=== PATIENT | female | born 1960 | race African-American/Black ===

== ENCOUNTER 2017-03-31 07:48 | Outpatient (CLI) | payer OTHER ==
--- NOTE | 2017-03-31 09:43 | Mammography Report ---
BILATERAL MAMMOGRAM: FINDINGS: The breast tissue is heterogeneously dense, which could obscure detection of small masses (approximately 50%-75% glandular). No mass, distortion, suspicious calcification, or skin change is seen. No significant changes compared to prior exams dating back to 2015. CAD was utilized. IMPRESSION: Negative mammogram. There is no mammographic evidence of malignancy. RECOMMENDATION: Follow-up per ACS guidelines. BI-RADS CATEGORY: 1 = Negative ACR BI-RADS MAMMOGRAPHIC CODES: 0 = Needs additional imaging evaluation; 1 = Negative; 2 = Benign; 3 = Probably benign; 4 = Suspicious; 5 = Malignant; 6 = Known biopsy-proven malignancy COMMENT: 1. Dense breast tissue, i.e., adenosis, fibrocystic changes, etc., may obscure an underlying neoplasm. 2. Approximately 10% of cancers are not detected with mammography. 3. A negative mammography report should not delay biopsy if a clinically suspicious mass is present. COMMENT: Patient follow-up letters are generated in [employer].
== END 2017-03-31 07:49 | disposition home or self-care (01) ==
LOC: MAMMO 07:48
PROVIDERS: ATTEND Family Medicine
DX: Z12.31 Encounter for screening mammogram for malignant neoplasm of breast (principal)
CPT/HCPCS: 77067; G0202

== ENCOUNTER 2021-07-10 21:35 | Emergency (ER) | payer OTHER ==
[2021-07-10 21:39] VITALS: BP 143/81
[2021-07-10] MEDS ORDERED: FAMOTIDINE 20 MG TAB PO ONE (23:33)
[2021-07-10] MEDS ORDERED: predniSONE 50 MG TAB PO ONE (23:33)
[2021-07-10] MEDS ORDERED: diphenhydrAMINE 25 MG CAP PO ONE (23:33)
--- NOTE | 2021-07-10 23:38 | Emergency Department Report ---
HPI - General Chief Complaint: Allergic Reaction Time Seen by Provider: 07/10/21 23:26 - HPI HPI: 60-year-old female presents to the emergency department with concern for an allergic reaction. She began having swelling around both of her eyes about 15 or 20 minutes after drinking soy milk at around 8:30 PM this evening. She did not have any known history of soy or soy milk allergy and says that she has drank it in the past. She took a dose of loratadine around the time the eye swelling began. She denies any swelling of the tongue or throat, difficulty swallowing, shortness of breath, chest pain. ED Past Medical Hx - Past Medical History Previous Medical History?: No - Surgical History Past Surgical History?: No - Medications Home Medications: Home Medications Medication Instructions Recorded Confirmed Last Taken Type Famotidine [Pepcid] 20 mg PO BID #10 tablet 07/11/21 Unknown Rx diphenhydrAMINE [Benadryl CAP] 25 mg PO Q8HR PRN #10 capsule 07/11/21 Unknown Rx predniSONE [Deltasone] 20 mg PO QDAY #4 tab 07/11/21 Unknown Rx ED Review of Systems ROS: Stated complaint: ALLERGIC REACTION Other details as noted in HPI Comment: All other systems reviewed and negative Constitutional: denies: chills, fever Eyes: other (Swelling around the eyes). denies: eye pain, vision change ENT: denies: ear pain, throat pain Respiratory: denies: cough, shortness of breath Cardiovascular: denies: chest pain, palpitations Gastrointestinal: denies: abdominal pain, vomiting Musculoskeletal: denies: back pain, arthralgia Skin: denies: rash, lesions Neurological: denies: headache, weakness Physical Exam - Physical Exam Vital Signs: Vital Signs 07/10/21 21:38 Temperature 98 F Pulse Rate 83 Respiratory 16 Rate Blood Pressure 143/81 [Right] O2 Sat by Pulse 97 Oximetry Physical Exam: GENERAL: The patient is well-developed well-nourished. HENT: Normocephalic. Atraumatic. Patient has moist mucous membranes. Oropharynx is clear without drooling or trismus. EYES: Extraocular motions are intact. Pupils equal reactive to light bilaterally. There is mild to moderate bilateral periorbital swelling. No erythema, rash, lesions, warmth, fluctuance. NECK: Supple. Trachea is midline. CHEST/LUNGS: Clear to auscultation. There is no respiratory distress noted. HEART/CARDIOVASCULAR: Regular. There is no tachycardia. There is no murmur. ABDOMEN: Abdomen is soft, nontender. Patient has normal bowel sounds. SKIN: Skin is warm and dry. NEURO: The patient is awake, alert, and oriented. The patient is cooperative. Normal speech. MUSCULOSKELETAL: There is no tenderness or deformity. There is no limitation range of motion. ED Course Vital Signs 07/10/21 21:38 Temperature 98 F Pulse Rate 83 Respiratory 16 Rate Blood Pressure 143/81 [Right] O2 Sat by Pulse 97 Oximetry ED Medical Decision Making - Medical Decision Making Patient appears to have had an allergic reaction to soy milk. It caused bilateral periorbital swelling. There is no skin color change, warmth, rash, lesions, tenderness to palpation. The patient does not appear to have any signs of angioedema or anaphylaxis. No drooling or trismus. She has no complaints of any swelling of the tongue or throat, difficulty swallowing, itchy throat, chest pain, shortness of breath. She was given a dose of Benadryl, Pepcid and prednisone. Vital signs reassuring including being afebrile. Upon reevaluation the swelling has started to come down and the patient is feeling improved. For all these reasons he appears safe for discharge home at this time. She has been given a prescription for Pepcid, prednisone and Benadryl and instructed to follow-up with her primary care physician. She will return to the emergency department with any worsening of her symptoms or with any acute distress. Critical Care Time: No Critical care attestation.: If time is entered above; I have spent that time in minutes in the direct care of this critically ill patient, excluding procedure time. ED Disposition Clinical Impression: Allergic reaction Qualifiers: Encounter type: initial encounter Qualified Code(s): T78.40XA - Allergy, unspecified, initial encounter Disposition: HOME / SELF CARE / HOMELESS Is pt being admited?: No Condition: Stable Instructions: Allergies, Adult Additional Instructions: Please follow-up with your primary care physician in the next few days. Return to the emergency department with any worsening of your symptoms, new or concerning symptoms not addressed during this current emergency department visit, or with any acute distress. Prescriptions: diphenhydrAMINE [Benadryl CAP] 25 mg PO Q8HR PRN #10 capsule PRN Reason: Allergic Reaction predniSONE [Deltasone] 20 mg PO QDAY #4 tab Famotidine [Pepcid] 20 mg PO BID #10 tablet Referrals: Primary Care Physician, Your [Other] - 3-5 Days Forms: Work/School Release Form(ED) Time of Disposition: 01:00
== END 2021-07-11 01:00 | disposition home or self-care (01) ==
LOC: ED 21:35
DX: T78.40XA Allergy, unspecified, initial encounter (principal); Y92.89 Other specified places as the place of occurrence of the external cause
CPT/HCPCS: 99282; J7512